=== PATIENT | male | born 1945 | race Caucasian/White ===

== ENCOUNTER 2016-11-19 11:26 | Emergency (ER) | payer MEDICARE, OTHER ==
[2016-11-19 13:10] VITALS: BP 144/86
[2016-11-19] MEDS ORDERED: Lidocaine 1% with EPINEPHrine 1:100,000 50 ML MDV SUBCUT STA (13:14)
[2016-11-19] MEDS ORDERED: Bacitracin Oint 1 GM U/D Packet TOP ONE (13:49)
--- NOTE | 2016-11-19 13:52 | EDM.PDOC ---
ED HPI Skin/Rash - General Chief Complaint: Laceration Stated Complaint: CUT LT LEG Time Seen by Provider: 11/19/16 13:11 Source: Reports: Patient, RN notes reviewed History Limitations: Reports: No limitations - History of Present Illness INITIAL COMMENTS - FREE TEXT/NARRATIVE: 71-year-old gentleman who presents emergency Department the lid laceration to his left leg this happened with a chain saw the wound did not go completely through his skin he has no functional complaints - Related Data Allergies Allergy/AdvReac Type Severity Reaction Status Date / Time No Known Allergies Allergy Verified 11/19/16 13:01 Home Meds: Ambulatory Orders Medication Instructions Recorded Confirmed Hydrochlorothiazide 25 mg PO DAILY 11/19/16 11/19/16 Pirfenidone [Esbriet] 267 mg PO TID 11/19/16 11/19/16 Simvastatin [Simvastatin] 1 tab PO DAILY 11/19/16 11/19/16 Past Medical History Cardiovascular History: Reports: High cholesterol, Hypertension Respiratory History: Reports: Pulmonary fibrosis - Infectious Disease History Infectious Disease History: Reports: Chicken pox Social & Family History - Tobacco Use Smoking Status *Q: Never Smoker Second Hand Smoke Exposure: No - Caffeine Use Caffeine Use: Reports: Coffee, Soda - Recreational Drug Use Recreational Drug Use: No ED ROS GENERAL - Review of Systems Review Of Systems: See Below Musculoskeletal: Reports: no symptoms Skin: Reports: wound Neurological: Reports: No Symptoms ED EXAM, SKIN/RASH Exam: See Below Exam Limited By: No limitations Front/Back Body Diagram: 1 - 4 cm laceration partially through the dermis, no tenderness on knee exam full range of motion knee without difficulty ED SKIN PROCEDURES - Laceration/Wound Repair Left Leg Lac/wound length in cm: 4 Appearance: subcutaneous, linear, mildly contaminated Distal NVT: neuro & vascular intact Anesthetic type: local Local anesthesia - Lidocaine (Xylocaine): 1% with epi Local anesthetic volume: 2cc Skin prep: chlorhexidine (hibiciens), saline Saline irrigation (cc's): 250 Exploration/Debridement/Repair: wound explored, in a bloodless field, minimal debridement Closed with: sutures Suture size: 4-0 # of sutures: 8 Suture type: nylon, interrupted Sterile dressing applied: nurse Tetanus status addressed: Yes (2008) Complications: No Course - Vital Signs Last Recorded V/S: Last Vital Signs Temp 98.2 F 11/19/16 13:10 Pulse 75 11/19/16 13:10 Resp 16 11/19/16 13:10 BP 144/86 H 11/19/16 13:10 Pulse Ox 91 L 11/19/16 13:10 - Orders/Labs/Meds Orders: Active Orders 24 hr Category Date Time Status Bacitracin [Bacitracin Oint 1 GM] Med 11/19/16 13:49 Once 1 dose TOP ONETIME ONE Meds: Medications Discontinued Medications Generic Name Dose Route Start Last Admin Trade Name [place] PRN Reason Stop Dose Admin Lidocaine/Epinephrine 20 ml 11/19/16 13:14 11/19/16 13:17 Xylocaine 1% With Epinephrine 1:100,000 SUBCUT 11/19/16 13:15 20 ml NOW STA Administration Departure - Departure Time of Disposition: 13:52 Disposition: Home, Self-Care 01 Condition: good Clinical Impression: Laceration of left leg Qualifiers: Encounter type: initial encounter Qualified Code(s): S81.812A - Laceration without foreign body, left lower leg, initial encounter Forms: ED Department Discharge Additional Instructions: suture removal in 10 days, follow wound care sheet, call or return to the ED with worsening of symptoms - My Orders Last 24 Hours: My Active Orders 11/19/16 13:49 Bacitracin [Bacitracin Oint 1 GM] 1 dose TOP ONETIME ONE - Assessment/Plan Last 24 Hours: My Active Orders 11/19/16 13:49 Bacitracin [Bacitracin Oint 1 GM] 1 dose TOP ONETIME ONE Plan: Assessment Acuity = acute Site and laterality = laceration left knee Etiology = chain saw injury Manifestations = none Location of injury = home Lab values = none Plan suture removal in 10 days, followup with primary care, follow wound care instruction sheet Patient was in agreement with the plan all questions were answered, they were instructed to return to the emergency department or call for worsening symptoms. This note was dictated using [employer] voice recognition software please call with any questions.
== END 2016-11-19 14:05 | disposition home or self-care (01) ==
LOC: JP.ED 11:26
DX: S81.812A Laceration without foreign body, left lower leg, initial encounter (principal); I10 Essential (primary) hypertension; E78.00 Pure hypercholesterolemia, unspecified; Z79.899 Other long term (current) drug therapy; W29.3XXA Contact with powered garden and outdoor hand tools and machinery, initial encounter
CPT/HCPCS: 12002; 99282-25; 99283-25